=== PATIENT | male | born 1995 | race Caucasian/White ===

== ENCOUNTER 2018-05-18 23:00 | Emergency (ER) | payer OTHER ==
[~2018-05-18] VITALS: Ht 172.7 cm; Wt 90.7 kg
--- NOTE | 2018-05-18 23:55 | NUR ---
TRIAGE ATTEMPT TO TRIAGE PT, PT NOT IN WAITING AREA. PER SECURITY, PT STEPPED OUTSIDE TO SMOKE.
[2018-05-19 00:18] VITALS: BP 135/50
[2018-05-19] MEDS ORDERED: ROCEPHIN IM IM STA (00:32)
--- NOTE | 2018-05-19 00:32 | ER.PDOC ---
General Chief Complaint: Requesting Medical Care Stated Complaint: TOOTHACHE Time seen by MD: 00:29 Source: patient Exam Limitations: no limitations History of Present Illness Initial Comments 3 weeks ago with tooth abscess, did not go and see a dentist, and now the pain has returned. Timing/Duration: yesterday Associated Symptoms: toothache Severity: moderate Worsen By: heat, cold Prior symptoms/Treatment: Similar symptoms previous, Recenly Seen (3 weeks ago) , Treated by Doctor; No Recently Hospitalized Allergies: Coded Allergies: No Known Allergies (Unverified , 10/08/16) Home Meds No Active Prescriptions or Reported Meds Past Medical History Medical History: other (dental caries) Surgical History: no surgical history Social History Smoking: cigarettes Alcohol Use: occassionally Drug Use: none Reviewed Nursing Reviewed: Vital Signs, Abn. Noted, Nursing Assessment Constitutional: no symptoms reported Eyes: no symptoms reported Ears: no symptoms reported Nose: no symptoms reported Mouth: pain, swelling Throat: no symptoms reported Respiratory: no symptoms reported Cardiovascular: no symptoms reported Gastrointestinal: no symptoms reported Musculoskeletal: no symptoms reported Skin: no symptoms reported Neurological: no symptoms reported Hematologic/Lymphatic: no symptoms reported Immunological/Allergic: no symptoms reported All Other Systems: Reviewed and Negative Physical Exam General Appearance: alert, mild distress (in pain) Eyes: eyes nml inspection, PERRL, no nystagmus Mouth: no thrush, membranes nml, dental tenderness, gum swelling Throat: pharynx nml, voice nml, no airway problems Respiratory: no resp. distress, lungs clear CVS: reg. rate & rhythm, heart sounds nml Extremities: non-tender, ROM nml Skin Exam: Normal Color, Warm/Dry Comments right anterior tender lymph nodes Departure Time of Disposition: 00:31 Disposition: 01 HOME, SELF-CARE Impression: Primary Impression: Toothache Condition: Stable Patient Instructions: Toothache-Brief Referrals: PCP,UNKNOWN (PCP) PRIMARY CARE PROVIDER Additional Instructions: take medication as prescribed, Quit smoking, see dentist in 1 week. Scripts No Active Prescriptions or Reported Meds Duration or Time Spent with Pa: LUIS DANIEL WARREN DO May 19, 2018 00:32
[2018-05-19] MEDS ORDERED: ROCEPHIN ONE (00:35)
[2018-05-19] MEDS ORDERED: TORADOL ONE (00:35)
[2018-05-19] MEDS ORDERED: TORADOL IM ONE (01:00)
[2018-05-19 01:10] VITALS: BP 135/50
== END 2018-05-19 01:08 | disposition home or self-care (01) ==
LOC: ER 23:00
DX: K08.89 Other specified disorders of teeth and supporting structures (principal); F17.210 Nicotine dependence, cigarettes, uncomplicated; K02.9 Dental caries, unspecified
CPT/HCPCS: 96372 ×2; 99283; J0696; J1885

== ENCOUNTER → 2019-10-27 | Outpatient (CLI) | payer OTHER ==
--- NOTE | 2019-10-27 17:09 | DIREP ---
PROCEDURE:US ABDOMEN COMPLETE COMPARISON:None. INDICATIONS:RUQ PAIN, NAUSEA WITH VOMITING TECHNIQUE:High resolution sonographic examination was performed of the abdomen. FINDINGS: CBD:2.7 mm GALL BLADDER WALL:1.85 mm SPLEEN: Length:12.47 cm Width:5.11 cm Height:12.28 cm RIGHT KIDNEY: Length:9.1 cm Height:5.97 cm Width:6.29 cm LEFT KIDNEY: Length:9.63 cm Height:6.16 cm Width:5.32 cm PANCREAS:Limited view the head neck appear unremarkable. The body and tail are obscured by bowel gas. LIVER:Normal size and echogenicity. No significant masses. Main portal vein is patent with hepatopetal flow. BILIARY:Echogenic material is seen floating within the gallbladder. There is no evidence of shadowing calculus. No gallbladder wall thickening. No pericholecystic fluid. RIGHT KIDNEY:Negative. LEFT KIDNEY:Negative AORTA:Normal. INFERIOR VENA CAVA:Intrahepatic portion unremarkable. OTHER:Negative. CONCLUSION: 1. Biliary sludge is seen within the gallbladder. No gallbladder wall thickening or pericholecystic fluid. 2. No evidence of hydronephrosis. 3. Partly visualized pancreas. Dictated by: Flo Decker MD on 10/27/2019 at 04:01 PM
== END | disposition home or self-care (01) ==
LOC: RAD 16:16
PROVIDERS: ATTEND Family Medicine
DX: R10.11 Right upper quadrant pain (principal); R11.2 Nausea with vomiting, unspecified
CPT/HCPCS: 76700